=== PATIENT | female | born 1995 | race African-American/Black ===

== ENCOUNTER 2017-02-16 18:31 | Inpatient (IN) ==
[2017-02-16] MEDS ORDERED: CHARCOAL AQUEOUS 25 GM/120 ML BOTTLE ONE (18:50)
[2017-02-16] MEDS ORDERED: CHARCOAL AQUEOUS 25 GM/120 ML BOTTLE NG STA (18:50)
[2017-02-16] MEDS ORDERED: SODIUM CHLORIDE 0.9% 2,000 ML IV STA ×2 (18:50→19:28)
[2017-02-16] MEDS ORDERED: METOCLOPRAMIDE 10 MG/2 ML VIAL IV STA (18:55)
[2017-02-16] MEDS ORDERED: ONDANSETRON 4 MG/2 ML VIAL IV STA (18:55)
[2017-02-16] MEDS ORDERED: METOCLOPRAMIDE 10 MG/2 ML VIAL ONE (19:06)
[2017-02-16] MEDS ORDERED: ONDANSETRON 4 MG/2 ML VIAL ONE (19:06)
--- NOTE | 2017-02-16 19:06 | Emergency Department Note ---
Arrival - Arrival Chief Complaint: Overdose Stated Complaint: possible overdose ED Nursing Triage Note: Pt's sister reports she went to a friends house to find patient lethargic. She states maybe patient possibly took a overdose of unknown meds. Mode of Arrival: Wheelchair Limitations: No Limitations Source: Patient Time Seen by Provider: 02/16/17 18:50 - History of Present Illness HPI Narrative: This 21-year-old female presents about 90 minutes to 2 hours post ingestion of an unknown number of 100 mg Seroquel's. She ingested these out of anger because of an impending divorce. Patient does not have a psychiatric history and the tablet she took were her sister's. At the time some vomiting was induced at home with production of some pills. The patient presents here somnolent, tachycardic and normotensive. She is responsive to noxious stimuli. After discussion with poison control their recommendation was simple supportive care. Usually the patient will have a deep sleep, tachycardia, and if hypotension ensues norepinephrine is the recommended pressor. Onset (ago): hour(s) (Patient presents approximately 90 minutes to 2 hours post incident) Date of Last Menstrual Period: unknown Allergies/Adverse Reactions: Allergies Allergy/AdvReac Type Severity Reaction Status Date / Time No Known Allergies Allergy Verified 02/16/17 18:34 Review of System - Review of System 12 point system: reviewed and no additional remarkable complaints except as stated - Review of System Constitutional: Present: as per HPI Respiratory: Present: as per HPI Cardiovascular: Present: as per HPI Neurological: Present: as per HPI Psychiatric: Present: as per HPI Medical,Surgical,& Family Hx - Social History Smoking Status: Unknown if ever smoked Frequency of Alcohol Use: Occasionally Type of Drug Use: Unknown Exam Physical Examination: GENERAL: Well developed, well nourished young female in no acute distress. HEENT: Normocephalic. No trauma. Moist mucous membranes. EOMI. PERRLA. ENT NML NECK: Supple. No adenopathy. CARDIAC: Regular. No murmurs. Heart rate 115 CHEST: Clear to auscultation. No respiratory distress. O2 saturation 100% ABDOMEN: Soft. Nontender. Active bowel sounds. EXTREMITIES: No trauma. Normal ROM. No pedal edema. SKIN: No diaphoresis. No rash. NEURO: Lethargic but awakens to noxious stimuli. Motor, sensory, vibratory intact. No focal deficits. Vital Signs: Vital Signs Temperature 96.6 F L 02/16/17 18:31 Pulse Rate 130 H 02/16/17 18:31 Respiratory Rate 16 02/16/17 18:35 Blood Pressure 79/42 02/16/17 18:31 O2 Sat by Pulse Oximetry 100 02/16/17 18:49 Course Course Narrative: Discussed with poison control who advised supportive care only. The patient usually will just have a deep sleep not requiring intubation and with higher doses prolonged QT with possible arrhythmia. Hypotension usually responds to fluids but if it progresses norepi is the pressor of choice. - Consultations Consultation #1: Discussed with hospitalist service who will admit for further evaluation treatment. Results - Labs CBC & BMP: 02/16/17 18:50 02/16/17 18:50 Labs: I reviewed the lab and noted its gross normalcy excepting for the significant hypokalemia including negative UDS. - Impressions EKG: Sinus tachycardia at 115 with shortened VA interval. Diffuse nonspecific ST changes with no acute injury pattern. Notable is no prolongation of QT interval. - Diagnostic Findings Procedure: Chest x-ray: image reviewed by me, report reviewed by me (Normal chest with NG in satisfactory position) Disposition Clinical Impression: Seroquel OD, Hypokalemia Case discussed with: patient's family Disposition: Still a Patient Condition: Stable Time of Disposition: 19:37
[2017-02-16 19:09] LABS: Basophils % 0.4 % (0.0-0.8); Eosinophils % 0.1 % (0.00-10.9); Hematocrit 39.5 VOL% (35.7-47.0); Hemoglobin 13.3 GM/DL (12.0-16.0); Immature Granulocytes % 0.6 %; Immature Granulocytes Absolute 0.06 #; Lymphocytes # 2.4 10*3/uL (1.4-4.0); Lymphocytes % 22.7 % (21.3-54.2); Mean Corpuscular HGB Conc 33.7 GM/DL (32-36); Mean Corpuscular Hemoglobin 27 PG (27-34); Mean Corpuscular Volume 78.8 FL (87-102); Mean Platelet Volume 10.1 FL (9.6-12.0); Monocytes # 0.9 10*3/uL (0.11-0.8); Monocytes % 8.7 % (1.7-12.7); Neutrophils % 67.5 % (38.7-73.9); Platelet Count 194 T/CUMM (130-400); Red Blood Count 5.01 MC/CUMM (3.8-5.5); White Blood Count 10.4 T/CUMM (4-12)
--- NOTE | 2017-02-16 19:13 | XRay Report ---
Portable chest Date: 02/16/2017 Clinical history: Overdose Comparison: None Technique: Portable AP supine chest Findings: The heart is normal in size. The lungs are clear with unremarkable mediastinum. Nasogastric tube in satisfactory position with mild gaseous distention of the stomach. No acute osseous findings. Impression: No acute cardiopulmonary pathology identified. Nasogastric tube in the stomach with associated mild gaseous distention of the stomach. PROCEDURE INTERPRETED AT [facility] DEPARTMENT OF RADIOLOGY Final Report Signed by: Dr. Una Turner
[2017-02-16 19:15] LABS: Apearance,Urine Slightly Hazy (Clear); Bilirubin,Urine Negative (Negative); Blood, Urine Negative (Negative); Glucose,Urine (UA) Negative (Negative); Ketones,Urine Negative (Negative); Mucus,Urine Occasional /LPF (Occasional); Nitrite,Urine Negative (Negative); Protein,Urine Negative; RBC,Urine 1 /HPF (0-4); Squamous Epithelial Cell,Urine Occasional /HPF (0-10); Urine Color Yellow (Yellow); Urine Specific Gravity 1.011 (1.001-1.035); Urine Urobilinogen < 2.0 EU/DL (0.2-1.0); WBC,Urine 1 /HPF (0-6)
[2017-02-16 19:22] LABS: Barbiturates Screen,Urine Negative (Negative); Benzodiazepines Screen,Urine Negative (Negative); Cannabinoid Screen,Urine Negative (Negative); INR 1.1; Opiate Screen,Urine Negative (Negative); Phencyclidine Screen,Urine Negative (Negative)
[2017-02-16 19:31] LABS: Alanine Aminotransferase 13 U/L (13-56); Albumin 4.1 G/DL (3.4-5.0); Alkaline Phosphatase 61 U/L (45-117); Aspartate Amino Transferase 14 U/L (0-37); Blood Urea Nitrogen 17 MG/DL (7-18); Calcium 9.1 MG/DL (8.5-10.1); Glucose 148 MG/DL (74-106); Osmolality,Calculated 283.4 MOS/KG (273-304); Potassium 2.9 MMOL/L (3.5-5.1); Sodium 140 MMOL/L (136-145); Total Protein 7.3 G/DL (6.4-8.3)
[2017-02-16 19:34] LABS: Acetaminophen < 2.0 UG/ML (10-30)
[2017-02-16 19:35] LABS: Salicylate < 2.8 MG/DL (2.8-20)
--- NOTE | 2017-02-16 20:10 | Hospitalist Progress Note ---
Assessment and Plan (1) Toxic metabolic encephalopathy Status: Acute Assessment and plan: The patient is sedated due to overtaking and prescribe Seroquel pills. The patient will be supported and observed in the intensive care unit. Will check ABG to determine whether or not she needs to be intubated. Current Visit: Yes Hospitalist: Subjective Interval history: This is a 21-year-old lady who has been for 3 years. She is despondent concerning impending divorce. Her accompanies her to the emergency room. He states he lives in [place]. The patient has been visiting her sister here in town. The sister had Seroquel. The patient took an unknown number of Seroquel tablets and then became drowsy. She was transported to the emergency room. The patient is somnolent but arousable. She is not verbal. The patient is a bit clammy. The oxygen saturation is 100%. Blood pressure is stable. The patient is now being admitted to intensive care unit. Exam - Constitutional Vitals: Period Temp Pulse Resp BP Sys/Peters Pulse Ox Last 24 Hr 96.6 F-96.6 F 130-130 14-16 79-79/42-42 10-100 General appearance: no acute distress Exam: Constitutional System: No distress. No tremulousness. The patient is somnolent but arousable. The patient opens eyes to command Head: Normocephalic, atraumatic. Ears, Nose and Throat System: No evidence of Otitis or Mastoiditis. No epistaxis or discharge Eyes System: Pupils equal, round, and reactive. Neck: Supple, without adenopathy, No jugular venous distention. No thyromegaly , neck mass, or prior surgery apparent. Respiratory System: Chest clear to auscultation. The patient appears to guard her airway Cardiovascular System: Heart with regular rate and rhythm. No murmur. GI System: Abdomen soft, nontender. Normo active bowel sounds present. Musculoskeletal System: limbs with no pedal edema. Full distal pulses. Neurological System: Not testable due to sedation Psychiatric System: Not testable due to sedation - Respiratory Respiratory exam: Present: clear to auscultation bilaterally Results - Labs CBC & BMP: 02/16/17 18:50 02/16/17 18:50 Lab Results: I have reviewed the past 24 hour labs
[2017-02-16] MEDS ORDERED: ACETAMINOPHEN 325 MG TABLET PO PRN (20:29)
[2017-02-16] MEDS ORDERED: ONDANSETRON 4 MG/2 ML VIAL IV PRN (20:29)
[2017-02-16 20:38] LABS: ABG Base Excess -8.9 MMOL/L (-2.5-2.5); ABG HCO3 17.4 MMOL/L (20-26); ABG Oxygen Saturation 98.8 % (95-100); ABG PCO2 39.4 MM HG (35-48); ABG PH 7.264 (7.35-7.45); ABG PO2 212.1 MM HG (80-95); ABG TCO2 18.7 MMOL/L (23-27)
[2017-02-16 21:51] LABS: Apearance,Urine CLEAR (Clear); Bilirubin,Urine Negative (Negative); Blood, Urine Small mg/dL (Negative); Glucose,Urine (UA) Negative (Negative); Ketones,Urine 5 mg/dL (Negative); Mucus,Urine Occasional /LPF (Occasional); Nitrite,Urine Negative (Negative); Protein,Urine Negative; RBC,Urine 1 /HPF (0-4); Urine Color Colorless (Yellow); Urine Specific Gravity 1.004 (1.001-1.035); Urine Urobilinogen < 2.0 EU/DL (0.2-1.0)
[2017-02-16] MEDS: SODIUM CHLORIDE 0.9% 1,000 ML IV SCH (22:16)
[2017-02-16] MEDS: POTASSIUM CHLORIDE 20 MEQ/15 ML UDCUP PER TUBE SCH (22:16)
[2017-02-16] MEDS: ENOXAPARIN 40 MG/0.4 ML SYRINGE SUBCUT SCH (22:17)
[2017-02-17] MEDS: POTASSIUM CHLORIDE 20 MEQ/15 ML UDCUP PER TUBE SCH ×2 (02:24→05:37)
[2017-02-17 03:55] LABS: ABG HCO3 21.2 MMOL/L (20-26); ABG Oxygen Saturation 99.5 % (95-100); ABG PCO2 42.4 MM HG (35-48); ABG PH 7.323 (7.35-7.45); ABG TCO2 19.6 MMOL/L (23-27)
[2017-02-17 04:41] LABS: Basophils % 0.3 % (0.0-0.8); Eosinophils % 0.2 % (0.00-10.9); Hematocrit 36.9 VOL% (35.7-47.0); Hemoglobin 12.1 GM/DL (12.0-16.0); Immature Granulocytes % 0.3 %; Immature Granulocytes Absolute 0.03 #; Lymphocytes # 2.1 10*3/uL (1.4-4.0); Lymphocytes % 20.9 % (21.3-54.2); Mean Corpuscular HGB Conc 32.8 GM/DL (32-36); Mean Corpuscular Hemoglobin 27 PG (27-34); Mean Corpuscular Volume 81.5 FL (87-102); Mean Platelet Volume 10.1 FL (9.6-12.0); Monocytes # 0.8 10*3/uL (0.11-0.8); Monocytes % 7.5 % (1.7-12.7); Neutrophils # 7.2 10*3/uL (1.4-7.4); Neutrophils % 70.8 % (38.7-73.9); Platelet Count 164 T/CUMM (130-400); Red Blood Count 4.53 MC/CUMM (3.8-5.5); Red Cell Distribution Width 14.1 % (9.3-17.3); White Blood Count 10.2 T/CUMM (4-12)
[2017-02-17 05:48] LABS: Calcium 8.4 MG/DL (8.5-10.1); Magnesium 1.8 MG/DL (1.8-2.4); Osmolality,Calculated 291.3 MOS/KG (273-304); Potassium 4.6 MMOL/L (3.5-5.1)
[2017-02-17] MEDS: SODIUM CHLORIDE 0.9% 1,000 ML IV SCH ×3 (06:17→21:53)
--- NOTE | 2017-02-17 08:04 | Hospitalist Progress Note ---
Assessment and Plan (1) Suicide Status: Acute Assessment and plan: She is stable status post suicide attempt with overdose of Seroquel. She remains under observation in the ICU. Current Visit: Yes (2) Toxic metabolic encephalopathy Status: Acute Assessment and plan: She remains unresponsive. She is not experiencing any respiratory distress. She will remain in the ICU under observation. Current Visit: Yes Hospitalist: Subjective Interval history: Patient was hospitalized here last night following a suicide attempt with Seroquel. She remains unresponsive to verbal and painful stimuli at the present time. She does not appear to be in any respiratory distress. Exam - Constitutional Vitals: Period Temp Pulse Resp BP Sys/Peters Pulse Ox Last 24 Hr 96.6 F-97.8 F 101-136 10-16 71-133/42-94 10-100 General appearance: no acute distress - Head Head exam: Present: normal inspection - Neck Neck exam: Present: normal inspection - Respiratory Respiratory exam: Present: clear to auscultation bilaterally - Cardiovascular Cardiovascular exam: Present: regular rate and rhythm - GI/Abdominal GI/Abdominal exam: Present: normal bowel sounds, soft, other (Nontender with no palpable masses or hepatosplenomegaly.) - Extremities Exam Extremities exam: Present: normal inspection - Neurological Exam Neurological exam: Present: other (She remains severely obtunded.) - Skin Skin exam: Present: normal color, warm, intact Results - Labs CBC & BMP: 02/17/17 04:10 02/17/17 04:10
--- NOTE | 2017-02-17 08:06 | EKG Report ---
Stationary ECG Study [facility] ER Test Date: 02/16/2017 7:11:20 PM Pat Name: MAYA FISHER Department: Room: 109 Gender: F Rn Hyperbaric: CHELY : 1995 Requested by: Armand Epstein Order Number: [id number] Reading MD: DAGOBERTO JACOBO Intervals [place] Rate: 114 P: 31 [place]: 114 QRS: 60 QRSD: 93 T: 75 QT: 357 QTc: 424 Interpretive Statements SINUS TACHYCARDIA WITH SHORT [place] INTERVAL MODERATE ST DEPRESSION Electronically Signed On 02-17-17 10:44:11 CDT by DAGOBERTO JACOBO [email or web address]
[2017-02-17] MEDS: PANTOPRAZOLE 40 MG TABLET PO SCH ×2 (09:01→09:07)
[2017-02-17] MEDS: ENOXAPARIN 40 MG/0.4 ML SYRINGE SUBCUT SCH (21:54)
[2017-02-18 05:05] LABS: Basophils % 0.4 % (0.0-0.8); Eosinophils # 0.1 10*3/uL (0.0-0.87); Eosinophils % 0.4 % (0.00-10.9); Hematocrit 34.6 VOL% (35.7-47.0); Hemoglobin 11.7 GM/DL (12.0-16.0); Immature Granulocytes % 0.4 %; Immature Granulocytes Absolute 0.04 #; Lymphocytes # 2.2 10*3/uL (1.4-4.0); Lymphocytes % 19.8 % (21.3-54.2); Mean Corpuscular HGB Conc 33.8 GM/DL (32-36); Mean Corpuscular Hemoglobin 27 PG (27-34); Mean Corpuscular Volume 80.5 FL (87-102); Mean Platelet Volume 10.1 FL (9.6-12.0); Monocytes # 0.9 10*3/uL (0.11-0.8); Monocytes % 8.1 % (1.7-12.7); Neutrophils % 70.9 % (38.7-73.9); Platelet Count 155 T/CUMM (130-400); Red Cell Distribution Width 14.4 % (9.3-17.3); White Blood Count 11.3 T/CUMM (4-12)
[2017-02-18 05:33] LABS: Calcium 8.2 MG/DL (8.5-10.1); Osmolality,Calculated 279.1 MOS/KG (273-304); Potassium 3.9 MMOL/L (3.5-5.1)
[2017-02-18] MEDS: SODIUM CHLORIDE 0.9% 1,000 ML IV SCH ×2 (06:06→14:19)
[2017-02-18] MEDS ORDERED: PHENOL 1.4% THROAT SPRAY 177 ML BOTTLE PO PRN (08:59)
--- NOTE | 2017-02-18 09:02 | Hospitalist Progress Note ---
Assessment and Plan (1) Suicide Status: Acute Assessment and plan: She is stable status post suicide attempt with overdose of Seroquel. She remains under observation in the ICU. She is awake and alert today. She will be seen today by case management for psychiatric evaluation. Current Visit: Yes (2) Toxic metabolic encephalopathy Status: Acute Assessment and plan: Resolved. Current Visit: Yes Hospitalist: Subjective Interval history: She is much better today. She is awake and alert. I will discontinue the nasogastric tube and Hopkins catheter. She is to be seen today by case management for psychiatric evaluation. Exam - Constitutional Vitals: Period Temp Pulse Resp BP Sys/Peters Pulse Ox Last 24 Hr 98.7 F-99.4 F 68-114 11-26 88-122/51-83 97-100 General appearance: no acute distress - Head Head exam: Present: normal inspection - Neck Neck exam: Present: normal inspection - Respiratory Respiratory exam: Present: clear to auscultation bilaterally - Cardiovascular Cardiovascular exam: Present: regular rate and rhythm - GI/Abdominal GI/Abdominal exam: Present: normal bowel sounds, soft - Extremities Exam Extremities exam: Present: normal inspection - Neurological Exam Neurological exam: Present: alert, oriented X3 - Psychiatric Psychiatric exam: Present: normal affect, normal mood - Skin Skin exam: Present: normal color, warm, intact Results - Labs CBC & BMP: 02/18/17 04:45 02/18/17 04:45
[2017-02-18] MEDS: PANTOPRAZOLE 40 MG TABLET PO SCH (09:25)
--- NOTE | 2017-02-18 17:32 | Discharge Summary ---
Hospital Course - Hospital Course Hospital Course: 21-year-old patient admitted to the hospital with intentional overdose on Seroquel. She was placed in the intensive care unit for further observation and monitoring. She has been accepted to [place] for further psychiatric evaluation. Patient is medically stable. Upon review of her records it seems that she is appropriate for transfer to the psychiatric facility. - Time spent with patient Time with patient DS: Less than 30 minutes Diagnosis - Discharge Diagnosis (1) Toxic metabolic encephalopathy Status: Resolved (2) Suicide Status: Resolved Discharge Plan - Discharge Data Disposition: Disch/Xfer to Psych Hos Condition at Discharge: Stable Discharge Diet: advance to your usual diet Activity: resume usual activities as tolerated Hygiene: no restrictions Weight Bearing at Discharge: full weight bearing Driving: no restrictions Contact your physician if you experience:: fever over 101 - Discharge Medications No Action No Known Home Medications [No Known Home Medications] - Follow Up or Referral - Forms/Instructions Additional Discharge Instructions: Follow-up with primary care physician and psychiatrist Exam - Constitutional Vitals: Period Temp Pulse Resp BP Sys/Peters Pulse Ox Last 24 Hr 97.5 F-99.6 F 68-114 12-26 88-130/51-83 97-100 Discharge Results Procedures and tests throughout hospitalization: Pending Orders 02/17/17 MRSA Screen Stat 02/18/17 04:25 MRSA Surveillence, Inf Control Labs on day of discharge: Labs from last 24 hours 02/18/17 02/18/17 04:45 04:45 WBC 11.3 RBC 4.30 Hgb 11.7 L Hct 34.6 L MCV 80.5 L MCH 27 MCHC 33.8 RDW 14.4 Plt Count 155 MPV 10.1 Neut % (Auto) 70.9 Lymph % (Auto) 19.8 L [place] % (Auto) 8.1 Eos % (Auto) 0.4 Baso % (Auto) 0.4 Neut # (Auto) 8.0 H Lymph # (Auto) 2.2 [place] # (Auto) 0.9 H Eos # (Auto) 0.1 Baso # (Auto) 0.0 Immature Gran % 0.4 Nucleated RBC % 0.0 Immature Gran # 0.04 Nucleated RBCs # 0.00 Immature Plt Fraction 0.0 Sodium 142 Potassium 3.9 Chloride 112 H Carbon Dioxide 21 Anion Gap 12.9 BUN 7 Creatinine 0.70 GFR Calculation 144 BUN/Creatinine Ratio 10.00 Glucose 76 Calculated Osmolality 279.1 Calcium 8.2 L Preliminary micro results at discharge 02/17/17 Unknown MRSA Culture - Preliminary Nares - Both Nares (Mrsa screen) No MRSA isolated. DS: Provider Date of admission: 02/16/17 19:38 Primary care physician: . No PCP Attending physician on admission: Matt Anderson MD Consults: 02/17/17 08:05 Consult to Case Mgmt/Social Srvs [CONS] Routine Reason for Case Mgmt/Social Srvs: Psychiatric Management Discharging clinician: Adal Gordon MD Expected date of discharge: 02/18/17
[2017-02-18 18:57] VITALS: BP 125/80
== END 2017-02-18 18:45 | DRG 917 ==
LOC: N.ED 18:31 → SUATTDRO 19:38 → N.EDINP 19:38 → N.ICU 20:04
PROVIDERS: ADMIT Student in an Organized Health Care Education/Training Program